=== PATIENT | female | born 1955 | race Caucasian/White ===

== ENCOUNTER 2016-12-29 07:05 | Emergency (ER) | payer BC ==
--- NOTE | 2016-12-29 07:12 | UC ---
Respiratory Complaint HPI - HPI Summary HPI Summary: 61 year old female smoker presents with dry cough. - History of Current Complaint Stated Complaint: COUGH Time Seen by Provider: 12/29/16 07:11 Hx Obtained From: Patient Onset/Duration: Lasting Days Severity Initially: Moderate Severity Currently: Moderate Pain Scale Used: 0-10 Numeric - 5 - Allergies/Home Medications Allergies/Adverse Reactions: Allergies Allergy/AdvReac Type Severity Reaction Status Date / Time No Known Allergies Allergy Verified 12/29/16 07:10 Home Medications: Home Medications Dextromethorphan-Phenylephrine [Day Time Multi-Symptom Co 10-5-325 mg] 1 cap PO PRN 12/29/16 [History] PMH/Surg Hx/FS Hx/Imm Hx Previously Healthy: Yes - Surgical History Surgical History: Yes Surgery Procedure, Year, and Place: LEFT LUMP REMOVED AT [facility]- 1979 - Family History Known Family History: Positive: Hypertension - Social History Alcohol Use: None Substance Use Type: None Smoking Status (MU): Heavy Every Day Tobacco Smoker Type: Cigarettes Amount Used/How Often: 1/2 PPD Length of Time of Smoking/Using Tobacco: SINCE AGE 15 Have You Smoked in the Last Year: Yes Household Exposure Type: Cigarettes - Immunization History Most Recent Influenza Vaccination: NOT IN 2016 Review of Systems Constitutional: Negative Skin: Negative Eyes: Negative ENT: Negative Respiratory: Cough Cardiovascular: Negative Gastrointestinal: Negative Genitourinary: Negative Motor: Negative Neurovascular: Negative Musculoskeletal: Negative Neurological: Negative Psychological: Negative All Other Systems Reviewed And Are Negative: Yes Physical Exam Triage Information Reviewed: Yes Vital Signs Reviewed: Yes Eye Exam: Normal ENT Exam: Normal Dental Exam: Normal Neck exam: Normal Neck: Positive: 1 Respiratory: Positive: Rhonchi, Wheezing Cardiovascular Exam: Normal Abdominal Exam: Normal Musculoskeletal Exam: Normal Neurological Exam: Normal Psychological Exam: Normal Skin Exam: Normal Respiratory Course/Dx - Differential Dx/Diagnosis Provider Diagnoses: COUGH Discharge - Discharge Plan Condition: Stable Disposition: HOME Prescriptions: Azithromyxin JUAN (NF) [Z-Juan (Zithromax) 250 mg tabs #6] 2 tab PO .TODAY, THEN 1 DAILY #6 tab Guaifenesin-Codeine [Cheratussin AC] 1 teasp PO Q8H PRN #120 ml MDD 15 PRN Reason: Cough LoraTADine TAB(NF) [Claritin 10 MG TAB(NF)] 10 mg PO DAILY #30 tab Patient Education Materials: Cold Symptoms (ED) Referrals: Filemon PETERS,Dotty [Primary Care Provider] -
[2016-12-29 07:23] VITALS: BP 161/91
== END 2016-12-29 07:28 | disposition home or self-care (01) ==
LOC: UCCORT 07:05
DX: R05 Cough (principal); F17.210 Nicotine dependence, cigarettes, uncomplicated
CPT/HCPCS: 99212; G0463

== ENCOUNTER 2018-05-18 15:04 | Emergency (ER) | payer BC ==
[2018-05-18 15:22] VITALS: BP 145/75
--- NOTE | 2018-05-18 15:32 | UC ---
Respiratory Complaint HPI - HPI Summary HPI Summary: 62 yo female with cough x 2 weeks productive at times waxing and waning fever no CP or sob no n/v/d chest tight - History of Current Complaint Chief Complaint: UCRespiratory Stated Complaint: COUGH Time Seen by Provider: 05/18/18 15:27 Hx Obtained From: Patient Onset/Duration: Gradual Onset, Lasting Weeks Timing: Constant Severity Initially: Mild Severity Currently: Mild Pain Intensity: 0 Pain Scale Used: 0-10 Numeric Character: Cough: Productive Aggravating Factors: Nothing Associated Signs And Symptoms: Positive: Fever. Negative: Dyspnea, Chills, Pleuritic Chest Pain, Wheezing, Hemoptysis, Dizziness, Calf Pain, Calf Swelling , Edema, URI, Nasal Congestion, Hoarseness, Sinus Discomfort - Allergies/Home Medications Allergies/Adverse Reactions: Allergies Allergy/AdvReac Type Severity Reaction Status Date / Time No Known Allergies Allergy Verified 05/18/18 15:22 Home Medications: Home Medications Levothyroxine Sodium [Synthroid] 75 mcg PO 05/18/18 [History] Metoprolol Succinate [Toprol Xl] 25 mg PO 05/18/18 [History] PMH/Surg Hx/FS Hx/Imm Hx Previously Healthy: Yes Cardiovascular History: Hypertension Respiratory History: Bronchitis, Pneumonia - Surgical History Surgical History: Yes Surgery Procedure, Year, and Place: LEFT LUMP REMOVED AT [facility]- 1979 - Family History Known Family History: Positive: Hypertension - Social History Alcohol Use: None Substance Use Type: None Smoking Status (MU): Light Every Day Tobacco Smoker Type: Cigarettes Amount Used/How Often: 3-4/day Length of Time of Smoking/Using Tobacco: SINCE AGE 15 Have You Smoked in the Last Year: Yes Household Exposure Type: Cigarettes - Immunization History Most Recent Influenza Vaccination: NOT IN 2016 Review of Systems All Other Systems Reviewed And Are Negative: Yes Constitutional: Positive: Fever Skin: Positive: Negative Eyes: Positive: Negative ENT: Positive: Negative Respiratory: Positive: Cough Cardiovascular: Positive: Negative Gastrointestinal: Positive: Negative Genitourinary: Positive: Negative Motor: Positive: Negative Neurovascular: Positive: Negative Musculoskeletal: Positive: Negative Neurological: Positive: Negative Psychological: Positive: Negative Physical Exam Triage Information Reviewed: Yes Appearance: Well-Appearing, No Pain Distress, Well-Nourished Vital Signs: Initial Vital Signs Temp 98.9 F 05/18/18 15:17 Pulse 82 05/18/18 15:17 Resp 16 05/18/18 15:17 BP 145/75 05/18/18 15:17 Pulse Ox 96 05/18/18 15:17 Vital Signs Reviewed: Yes Eyes: Positive: Conjunctiva Clear ENT: Positive: Pharynx normal, TMs normal, Uvula midline. Negative: Hearing grossly normal - bilat hearing aids, Nasal congestion, Nasal drainage, Tonsillar swelling, Tonsillar exudate, Trismus, Muffled voice, Hoarse voice, Sinus tenderness Neck: Positive: Supple, Nontender, No Lymphadenopathy Respiratory: Positive: Lungs clear, Normal breath sounds, No respiratory distress, No accessory muscle use, Respiratory distress, Other: - bronchospastic cough Cardiovascular: Positive: RRR, No Murmur Musculoskeletal: Positive: ROM Intact, No Edema Neurological: Positive: Alert Psychological Exam: Normal Skin Exam: Normal Respiratory Course/Dx - Differential Dx/Diagnosis Provider Diagnosis: Acute bronchitis Discharge - Sign-Out/Discharge Documenting (check all that apply): Patient Departure All imaging exams completed and their final reports reviewed: No Studies - Discharge Plan Condition: Stable Disposition: HOME Prescriptions: Amoxicillin PO (*) [Amoxicillin 875 MG (*)] 875 mg PO BID #14 tab Patient Education Materials: Acute Bronchitis (ED) Referrals: Dotty Colbert MD [Primary Care Provider] - 1 Week (if not completely better) - Billing Disposition and Condition Condition: STABLE Disposition: Home
== END 2018-05-18 15:39 | disposition home or self-care (01) ==
LOC: UCCORT 15:04
DX: J20.9 Acute bronchitis, unspecified (principal); I10 Essential (primary) hypertension; F17.210 Nicotine dependence, cigarettes, uncomplicated
CPT/HCPCS: 99212; G0463

== ENCOUNTER 2018-12-07 08:06 | Emergency (ER) | payer BC ==
[2018-12-07 08:42] VITALS: BP 144/72
--- NOTE | 2018-12-07 09:04 | UC ---
UC General HPI - History of Current Complaint Chief Complaint: UCGeneralIllness Stated Complaint: COLD/COUGH Time Seen by Provider: 12/07/18 08:37 Pain Intensity: 0 - Allergy/Home Medications Allergies/Adverse Reactions: Allergies Allergy/AdvReac Type Severity Reaction Status Date / Time No Known Allergies Allergy Verified 12/07/18 08:39 Home Medications: Home Medications Guaifenesin/Dextromethorphan [Robitussin Cough-Chest Dm Liq] 30 ml PO ONCE 12/07 [History Confirmed 12/07/18] PMH/Surg Hx/FS Hx/Imm Hx - Surgical History Surgical History: Yes Surgery Procedure, Year, and Place: LEFT LUMP REMOVED AT [facility]- 1979 - Family History Known Family History: Positive: Hypertension - Social History Alcohol Use: None Substance Use Type: None Smoking Status (MU): Heavy Every Day Tobacco Smoker Type: Cigarettes Amount Used/How Often: 1/2 ppd Length of Time of Smoking/Using Tobacco: SINCE AGE 15 Have You Smoked in the Last Year: Yes Household Exposure Type: Cigarettes - Immunization History Most Recent Influenza Vaccination: NOT IN 2015 Physical Exam Vital Signs: Initial Vital Signs Temp 98.5 F 12/07/18 08:40 Pulse 89 12/07/18 08:40 Resp 20 12/07/18 08:40 BP 144/72 12/07/18 08:40 Pulse Ox 98 12/07/18 08:40 Discharge ED - Discharge Plan Referrals: Dotty Colbert MD [Primary Care Provider] -
== END 2018-12-07 09:26 | disposition home or self-care (01) ==
LOC: UCCORT 08:06
DX: R05 Cough (principal); J00 Acute nasopharyngitis [common cold]; F17.210 Nicotine dependence, cigarettes, uncomplicated
CPT/HCPCS: 99212; G0463

== ENCOUNTER 2019-02-07 13:56 | Emergency (ER) | payer BC ==
--- OUTSIDE RECORDS SUMMARY | 2019-02-07 14:04 | XMS REPORT | Continuity of Care Document ---
:1955 External Reference #:[id number] Author Name Dotty Colbert MD Address [address] [place] [id number] Care Team Providers Name Role Phone Dotty Colbert MD - Family Medicine Care Team Information Manager Simulation Problems Active Problems Provider Date Crushing injury of finger Onset: 01/25/2015 Essential hypertension Dotty Colbert MD Onset: 02/14/2015 Hypothyroidism Dotty Colbert MD Onset: 02/14/2015 Tobacco use Dotty Colbert MD Onset: 02/14/2015 Benign essential hypertension Onset: 02/14/2015 Hypohidrosis with neurolabyrinthitis Dotty Colbert MD 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/2017 Tobacco user Dotty Colbert MD Onset: 04/03/2017 Substance abuse counseling Dotty Colbert MD Onset: 04/03/2017 Disorder of bone Dotty Colbert MD Onset: 04/03/2017 Adult health examination Dotty Colbert MD Onset: 04/03/2017 Hearing loss Dotty Colbert MD Onset: 08/03/2017 Social History Type Date Description Comments Sex Unknown Tobacco Use Start: Unknown current cigarette smoker 1/2 ppd x 45yrs; 1/4 ppd x 2 yrs Smoking Status Reviewed: 12/29/18 current cigarette smoker 1/2 ppd x 45yrs; 1/4 ppd x 2 yrs ETOH Use Denies alcohol use Tobacco Use Start: Unknown Light tobacco smoker (10 or 1 ppd x 30 yrs - started fewer cigarettes/day) age 15. , then 1/2 ppd x 10 yrs, currently down to 3-4 cigarettes/day Allergies, Adverse Reactions, Alerts Description No Known Drug Allergies Medications Active Medications SIG Qnty Indications Ordering Provider Date Metoprolol Succinate 1 Tab qd 90tabs I10 Dotty Colbert, 04/03/2017 ER 50mg Tablets ER 24HR Levothyroxine Sodium take 1 tablet by 90tabs Dotty Colbert, 02/05/2017 mouth once daily MD 200mcg Tablets Along With 1/2 Of 50 mcg Tab On /Sat/Sun, ALL Other Days 1 Tab Levothyroxine Sodium 1/2 Tab by mouth 90tabs Dotty Colbert, 02/05/2017 every day along 50mcg Tablets with the 200 mcg tab On //Garcia Meclizine HCL take one tablet 28tabs H81.12 Clune, 01/16/2017 25mg by mouth four Wilbur, Tablets times a day as GRAIN COMBINER needed for vertigo Immunizations CPT Code Status Date Vaccine Lot # [id number] Given 12/29/2018 Influenza Virus Vaccine, Quadrivalent, 36 Mos+, [id number] .[id number] Given 01/30/2017 Influenza Virus Vaccine Quadrivalent Iiv4 Split [id number] Preser Free Id [id number] Given 02/14/2015 Influenza Vaccine (Fluzone) Age 3 And Older [id number] Given 02/14/2015 Pneumococcal Conjugate Vaccine 13 Valent For [id number] Intramuscular Use [id number] Given 12/01/2012 Tdap injection [id number] Given 04/20/2008 Pneumovax Injection Vital Signs Date Vital Result Comment 12/29/2018 2:51pm BP Systolic Sitting Left Arm 136 mmHg BP Diastolic Sitting Left Arm 74 mmHg Body Temperature 98.7 F Heart Rate 94 /min Respiratory Rate 18 /min Height 62 inches 5'2" Weight 121.00 lb BMI (Body Mass Index) 22.1 kg/m2 BSA (Body Surface Area) 1.54 m2 Wilbur body weight in kilograms 50 kg 08/03/2017 8:28am BP Systolic 116 mmHg BP Diastolic 68 mmHg Body Temperature 96.9 F Heart Rate 88 /min Respiratory Rate 18 /min Height 62 inches 5'2" Weight 124.00 lb BMI (Body Mass Index) 22.7 kg/m2 BSA (Body Surface Area) 1.56 m2 Wilbur body weight in kilograms 50 kg O2 % BldC Oximetry 95 % Results Test Acquired Date Facility Test Result H/L Range Note Urine Dipstick 12/29/2018 [facility] Ua Leuko - Negative Ua Nitrite - Negative Ua Urobilinogen .2 0.2 - 1.0 E.U./dL Ua Protein - Negative Ua PH 5.5 Low 6.5-7.5 Ua Blood - Negative Ua Specific [place] 1.025 1.010-1.030 Ua Ketones - Negative Ua Bilirubin - Negative Ua Glucose - Negative CBC W/Automated 12/27/2018 [facility] White Blood 5.9 K/uL Normal 3.1-10.[address] [place] [address] [phone] Red Blood Count 4.18 M/uL Normal 3.90-5.40 Hemoglobin 12.7 gm/dL Normal 11.6-15.8 Hematocrit 39.1 % Normal 36.0-46.1 Mean Cell Volume 93.5 fl Normal 80.9-99.0 Mean Corpuscular HGB 30.4 pg Normal 25.9-32.7 Mean Corpuscular HGB Conc 32.5 g/dL Normal 30.8-34.3 Platelet Count 326 K/uL Normal 155-360 Red Cell Distri Width SD 45.9 fl Normal 36-47 Red Cell Distri Width %CV 13.5 % Normal 11.7-14.4 Mean Platelet Volume 9.3 fl Normal 8.9-12.4 Neut% 40.5 % Normal 40.4-72.8 Lymph % 41.6 % Normal 20.0-42.0 Thurston % 15.2 % High 4.3-13.2 Eo% 1.4 % Normal 0.0-6.6 Bas% 1.0 % Normal 0.0-1.1 Immature Grans 0.3 % Normal 0.0-5.0 NRBC % 0.0 /100WBC < 10/ 100 WBC Neut# 2.37 K/uL Normal 1.8-7.0 Lymph # 2.44 K/uL Normal 1.0-4.0 Thurston # 0.89 K/uL Normal 0.3-0.9 Eos # 0.08 K/uL Normal 0.0-0.5 Baso # 0.06 K/uL Normal 0.0-0.1 Immature Grans Absolute 0.02 K/uL NRBC # 0.00 K/uL Comprehensive 12/27/2018 [facility] Glucose 97 mg/dL Normal 74-106 Metabolic Panel [address] [place] [address] [phone] BUN 14 mg/dL Normal 7-18 Creatinine 0.8 mg/dL Normal 0.6-1.3 Glom Filtration Rate, Estimate >60 mL/min >60 If >60 mL/min >60 2 BUN/Creat 17.5 ratio Sodium 135 mmol/L Low 136-145 Potassium 4.3 mmol/L Normal 3.5-5.1 Chloride 105 mmol/L Normal 98-107 Carbon Dioxide 25 mmol/L Normal 21-32 Anion Gap 5 mEq/L Low 8-16 Calcium 9.1 mg/dL Normal 8.5-10.1 Total Protein 7.8 g/dL Normal 6.4-8.2 Albumin 3.6 g/dL Normal 3.4-5.0 Globulin 4.2 g/dL Normal 1.9-4.3 Alb/Glob 0.9 ratio Bilirubin,Total 0.2 mg/dL Normal 0.2-1.0 Sgot/Ast 14 U/L Low 15-37 3 SGPT/Alt 18 U/L Normal 12-78 Alkaline Phosphatase 92 U/L Normal 45-117 Reflex add FT3? Y Reflex add FT4? Y TSH Reflex 12/27/2018 [facility] Thyroid 0.01 Critical low 0.30-4.20 4 FT4 And/Or [address] Stim uIU/mL FT3 [place] [address] Hormone [phone] Reflex add FT3? Y Reflex add FT4? Y LDL Cholesterol Profile 12/27/2018 [facility] Cholesterol 143 mg/dL <200 5 [address] [place] [address] [phone] Triglycerides 88 mg/dL <150 6 HDL Cholesterol 43 mg/dL >40 7 LDL-Cholesterol 82 mg/dL < 100 8 Reflex add FT3? Y Reflex add FT4? Y Free T3 12/27/2018 [facility] Free T3 3.25 pg/mL Normal 2.18-3.98 [address] [place] [address] [phone] Reflex add FT3? Y Reflex add FT4? Y Free T4 12/27/2018 [facility] Free T4 1.81 ng/dL High 0.76-1.46 [address] [place] [address] [phone] Reflex add FT3? Y Reflex add FT4? Y 1 Z13.0 E03.9 I10 Z13.220 2 Note: Persistent reduction for 3 months or more in an eGFR <60 mL/min/1.73 m2 defines CKD. Patients with eGFR values >/=60 mL/min/1.73 m2 may also have CKD if evidence of persistent proteinuria is present. The original MDRD equation for estimated GFR is not valid for patients less than 18 years of age. Additional information may be found at www.kdoqi.org. 3 Values below the stated reference ranges of AST and ALT can be seen in normal populations. Clinical correlation is suggested. 4 Result confirmed by repeat analysis. 5 Reference Guidelines*: Desirable: ........... < 200 mg/dL Borderline High: ..... 200-239 mg/dL High: ................ >= 240 mg/dL * The National Cholesterol Education Program (NCEP) 6 Reference Guidelines*: Normal: ............. < 150 mg/dL Borderline High: .... 150-199 mg/dL High: ............... 200-499 mg/dL Very High: .......... > 500 mg/dL * Source: National Cholesterol Education Program (NCEP) 7 Reference Guidelines*: Low HDL: ..... < 40 mg/dL Normal: ..... 40-60 mg/dL Desirable: ... > 60 mg/dL *The National Cholesterol Education Program(NCEP) 8 Reference Guidelines*: Optimal:........... <100 mg/dL Near Optimal....... 100-129 mg/dL Borderline High.... 130-159 mg/dL High............... 160-189 mg/dL Very High.......... >=190 mg/dL * Source: National Cholesterol Education Program (NCEP) Procedures Date Code Description Status 01/09/2019 58433595 Mammogram Completed 02/09/2017 [id number] Bone Mineral Density Test Completed 01/15/2017 [id number] Mammogram Completed 03/14/2015 [id number] Mammogram Completed 02/09/2014 [id number] Colonoscopy Completed Medical Devices Description No Information Available Encounters Type Date Location Provider Dx Diagnosis Office Visit 12/29/2018 [facility] Dotty Colbert, Z00.00 Encntr for general 2:45p [facility] adult medical exam w/o abnormal findings I10 Essential (primary) hypertension E03.9 Hypothyroidism, unspecified F17.210 Nicotine dependence, cigarettes, uncomplicated Assessments Date Code Description Provider 12/29/2018 Z00.00 Encounter for general adult medical examination Dotty Colbert MD without abnormal findings 12/29/2018 I10 Essential (primary) hypertension Dotty Colbert MD 12/29/2018 E03.9 Hypothyroidism, unspecified Dotty Colbert MD 12/29/2018 F17.210 Nicotine dependence, cigarettes, uncomplicated Dotty Colbert MD Plan of Treatment Future Appointment(s):07/01/2019 10:15 am - [facility]12/29/2018 - Dotty Colbert MDZ00.00 Encounter for general adult medical examination without abnormal findingsComments:REGULAR EXERCISE STRESSED; MAINTAIN WEIGHT;SUNSCREEN FOR SKIN CANCER PREVENTION;CALCIUM AND VIT D SUPPLEMENTS IF NOT GETTING ENOUGH IN DIET;PAP/PELVIC UTD, DUE 2019; MAMMOGRAM AND REPEAT THYROID SONO ORDERED, YOU WILL MAKE YOUR OWN APPOINTMENT.LABS REVIEWED;COLON CA SCREENING UTD;IMMUNIZATIONS: FLU [facility]OT [facility] IN CHART.I10 Essential (primary) hypertensionComments:WATCH SALT; CONT. WITH SAME MEDICAL REGIME;REGULAR EXERCISE IS KING.E03.9 Hypothyroidism, unspecifiedComments:RE-CHECK THYROID SONO FOR NODULE IN RIGHT LOBE.DECREASE THYROID DOSE: 200 MCG // 225 MCG ///SURE-CHECK 4 MO., I GAVE YOU THE ORDER.Follow up:6 MOF17.210 Nicotine dependence, cigarettes, uncomplicatedComments:YOUR PLAN IS TO GO BACK TO USING THE PATCHES, YOU DO WANT TO QUIT.ANNUAL SCREENING FOR LUNG CANCER ORDERED., THE LOW-DOSE CT . THAT ONE WE NEED TO SET UP; SOMEONE WILL CALL YOU. Functional Status Functional Condition Comment Date Status Glasses Active Mental Status Description No Information Available Referrals Description No Information Available
[2019-02-07 14:37] VITALS: BP 143/68
--- NOTE | 2019-02-07 14:49 | ED ---
Respiratory - HPI Summary HPI Summary: 63 yr old female with the complaint of left posterior chest wall pain. The patient presents here after falling 6 days ago, and landing on her left posterior ribs. No LOC. She states that she has pain with moving, breathing, coughing. No SOB. She has pain that is moderate. - History of Current Complaint Chief Complaint: UCRespiratory Stated Complaint: SP FALL-RIB PAIN Time Seen by Provider: 02/07/19 14:38 Pain Intensity: 7 - Allergy/Home Medications Allergies/Adverse Reactions: Allergies Allergy/AdvReac Type Severity Reaction Status Date / Time No Known Allergies Allergy Verified 02/07/19 14:32 Home Medications: Home Medications Ibuprofen TAB* [Advil TAB*] 800 mg PO Q6H PRN 02/07/19 [History Confirmed ] PMH/Surg Hx/FS Hx/Imm Hx Endocrine/Hematology History: Reports: Hx Thyroid Disease Cardiovascular History: Reports: Hx Hypertension Respiratory History: Reports: Hx Chronic Obstructive Pulmonary Disease (COPD) Musculoskeletal History: Denies: Hx Rheumatoid Arthritis, Hx Osteoporosis - Cancer History Hx Chemotherapy: No Hx Radiation Therapy: No - Surgical History Surgery Procedure, Year, and Place: LEFT LUMP REMOV[facility] AT [facility]- [facility] Infectious Disease History: No Infectious Disease History: Reports: Hx Shingles Denies: Traveled Outside the [place] in Last 30 Days - Family History Known Family History: Positive: Hypertension - Social History Alcohol Use: None Substance Use Type: Reports: None Smoking Status (MU): Heavy Every Day Tobacco Smoker Type: Cigarettes Amount Used/How Often: 1/2 ppd Length of Time of Smoking/Using Tobacco: SINCE AGE 15 Have You Smoked in the Last Year: Yes Review of Systems Constitutional: Negative Positive: Other All Other Systems Reviewed And Are Negative: Yes Physical Exam Triage Information Reviewed: Yes Vital Signs On Initial Exam: Initial Vitals Temp Pulse Resp BP Pulse Ox 97.9 F 79 16 143/68 99 02/07/19 14:34 02/07/19 14:34 02/07/19 14:34 02/07/19 14:34 02/07/19 14:34 Vital Signs Reviewed: Yes Appearance: Positive: Well-Appearing, No Pain Distress Skin: Positive: Warm, Skin Color Reflects Adequate Perfusion Head/Face: Positive: Normal Head/Face Inspection Eyes: Positive: EOMI ENT: Positive: Normal ENT inspection Neck: Positive: Nontender Respiratory/Lung Sounds: Positive: Clear to Auscultation, Breath Sounds Present , Other - tender over the left posterior chest wall. No bruise. Cardiovascular: Positive: RRR. Negative: Murmur Abdomen Description: Positive: Nontender. Negative: Distended Musculoskeletal: Positive: Strength/ROM Intact. Negative: Edema Left, Edema Right Neurological: Positive: Sensory/Motor Intact, Alert, Oriented to Person Place, Time, CN Intact II-III, Normal Gait, Speech Normal Psychiatric: Positive: Normal Diagnostics - Vital Signs Vital Signs Temp Pulse Resp BP Pulse Ox 02/07/19 14:34 97.9 F 79 16 143/68 99 - Laboratory Lab Statement: Any lab studies that have been ordered have been reviewed, and results considered in the medical decision making process. - Radiology marlen castro chest Radiology Interpretation Completed By: Radiologist - nad Disposition - Course Course Of Treatment: 63 yr old with left posterior chest wall tenderness. - Diagnoses Provider Diagnoses: Chest wall contusion Discharge ED - Sign-Out/Discharge Documenting (check all that apply): Patient Departure All imaging exams completed and their final reports reviewed: Yes - Discharge Plan Condition: Good Disposition: HOME Patient Education Materials: Rib Fracture (ED), Hypertension (ED) Referrals: Dotty Colbert MD [Primary Care Provider] - - Billing Disposition and Condition Condition: GOOD Disposition: Home
== END 2019-02-07 15:16 | disposition home or self-care (01) ==
LOC: UCCORT 13:56
DX: S20.212A Contusion of left front wall of thorax, initial encounter (principal); I10 Essential (primary) hypertension; J44.9 Chronic obstructive pulmonary disease, unspecified; F17.210 Nicotine dependence, cigarettes, uncomplicated; W19.XXXA Unspecified fall, initial encounter; Y92.9 Unspecified place or not applicable
CPT/HCPCS: 99211; G0463